=== PATIENT | male | born 1960 | race Caucasian/White ===

== ENCOUNTER 2016-05-04 08:27 | Day surgery (SDC) | payer MEDICARE ==
[~2016-05-04] VITALS: Ht 180.3 cm; Wt 113.4 kg
[~2016-05-04 08:27] MED LIST: ALPR0.5T8 PO; ASPI-973 PO; BISM262T15 PO; BUDE3CAP7 PO; CARV12.52 PO; CETI10CA PO; DULO30CA50 PO; FURO40SO4 PO; GABA600T2 PO; INSU100V2 SUBQ; LISI-567 PO; Lactated Ringer's 1,000 ML IV ONE; MULT-321 PO; NITR0.4T6 SL; NORT10CA PO; OXYC5CAP4 PO; PANT40TA3 PO; RANI150C4 PO; SIMV40TA2 PO; SPIR25TA3 PO; TAMS0.4C98 PO; ZLP5T PO
[2016-05-04] MEDS ORDERED: Propofol 10,000 mCg/mL 20 mL Inj ONE (08:28)
[2016-05-04 08:46] VITALS: BP 122/73; PULSE 73; RESP 16; O2SAT 99
[2016-05-04] MEDS ORDERED: HYDR10TA12 PO (08:46)
[2016-05-04] MEDS ORDERED: Lactated Ringer's 1,000 ML IV SCH (08:55)
[2016-05-04] MEDS ORDERED: Ondansetron 2 mg/mL 2 mL Inj IVPUSH PRN (08:55)
[2016-05-04] MEDS ORDERED: MetoCLOpramide 5 mg/mL 2 mL Inj IVPUSH PRN (08:55)
[2016-05-04] MEDS ORDERED: Lidocaine Topical 2% 30 mL Jelly ONE (09:00)
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
[2016-05-04 09:30] VITALS: BP 110/67; PULSE 77; RESP 16; O2SAT 98
--- NOTE | 2016-05-04 09:39 | PCM.ANEP1 ---
Post Anesthesia Phase 1 PACU Phase 1 Assessment Date of Service: May 04, 2016 Vital Signs Vital Signs Date Time Temp Pulse Resp B/P Pulse Ox O2 Delivery O2 Flow Rate FiO2 05/04/16 09:30 77 16 110/67 98 Nasal Cannula 4 05/04/16 08:46 36.6 73 16 122/73 99 Room Air Anesthetic Administered: MAC Level of Alertness: Sleepy, easy to arouse IBARRA's with Equal Strength: Yes Pain: No Nausea or Vomiting: Yes Oxygen Delivery: Nasal Cannula Lungs: Normal Air Movement Adan Avina MD May 04, 2016 09:39
[2016-05-04 09:40] VITALS: BP 112/67; PULSE 73; RESP 14; O2SAT 98
--- NOTE | 2016-05-04 09:43 | PCM.ANEP2 ---
Post Anesthesia Evaluation ASA/CMS Post Anesthesia Date of Service: May 04, 2016 VS in Patient's Normal Range?: Yes Resp Stable; Airway Patent?: Yes CV Function & Hydration Stable: Yes Mental Status Recovered?: Yes Pain control Satisfactory?: Yes N/V Control Satisfactory?: Yes Adan Avina MD May 04, 2016 09:43
[2016-05-04 09:50] VITALS: BP 110/68; PULSE 73; RESP 14; O2SAT 96
[2016-05-04 10:00] VITALS: BP 109/64; PULSE 72; RESP 14; O2SAT 96
--- NOTE | 2016-05-04 12:30 | ENDO ---
[address] [address] ENDOSCOPY PROCEDURE PATIENT: WAYNE ANGUIANO : 1960 MR#: [id number] ADMIT: 05/04/2016 JOB ID: [id number] DATE: 05/04/2016 PROCEDURE: Esophagogastroscopy. INDICATIONS: A 55-year-old male with noncardiac chest pain. Attempt at passing a manometry probe last fall was unsuccessful. He reports today for full sedation and direct visualization assistance to ensure the tip of the probe advances through the lower esophageal sphincter. EQUIPMENT: [id number]. SEDATION: Monitored anesthesia as provided by Dr. Adan Avina. COMPLICATIONS: None identified. PROCEDURE INFORMATION: After the risks and benefits were explained, written and verbal informed consent was obtained. The patient was brought into the endoscopy suite and placed into the supine position. Sedation was achieved. Lakhwinder Sheldon, one of our endoscopy nurses, advanced the manometry probe through the patient's right naris. The probe advanced to somewhere in mid esophagus but started to buckle, and EGD assistance was thereafter requested. I advanced the scope through the bite block and identified the manometry probe passing through the upper esophageal sphincter. I followed this down with the endoscope. We had the patient is slightly more in the left lateral decubitus position for this aspect of the procedure. I then advanced the scope down and by applying air insufflation, it made it easier for Lakhwinder to simultaneously advance the manometry catheter. This was visualized in the proximal stomach. I then withdrew the endoscope and Lakhwinder held the manometry probe in position. The scope was removed from the patient who tolerated the procedure reasonably well. FINDINGS: As above. GE junction was at approximately 45 cm from the incisors. I did not appreciate any acute erosive changes at this time. Very limited views of the proximal stomach appeared relatively normal. ENDOSCOPIC DIAGNOSES: Successful endoscopic assistance for manometry probe positioning. RECOMMENDATIONS: The patient will be allowed to awake from sedation and proceed with a swallow evaluation/manometry shortly. Please see the manometry report for further details.
== END 2016-05-04 23:59 | disposition home or self-care (01) ==
LOC: END 08:27
PROVIDERS: ATTEND Internal Medicine Gastroenterology
DX: R07.89 Other chest pain (principal); K21.9 Gastro-esophageal reflux disease without esophagitis; K52.89 Other specified noninfective gastroenteritis and colitis; I25.10 Atherosclerotic heart disease of native coronary artery without angina pectoris; I10 Essential (primary) hypertension; E10.21 Type 1 diabetes mellitus with diabetic nephropathy; I50.32 Chronic diastolic (congestive) heart failure; F32.9 Major depressive disorder, single episode, unspecified; E66.9 Obesity, unspecified; Z68.35 Body mass index [BMI] 35.0-35.9, adult; Z79.82 Long term (current) use of aspirin; Z79.4 Long term (current) use of insulin; Z95.0 Presence of cardiac pacemaker; Z95.5 Presence of coronary angioplasty implant and graft
CPT/HCPCS: 43200; 91010; 91038; J7120